=== PATIENT | female | born 1975 | race African-American/Black ===

== ENCOUNTER 2016-09-28 20:10 | Observation (INO) | payer OTHER ==
[~2016-09-28] VITALS: Ht 170.2 cm; Wt 72.3 kg
[2016-09-28] VITALS (9 sets, daily range): BP systolic 115–144; BP diastolic 73–86; PULSE 69–81; RESP 16–20; TEMP 98.7; O2SAT 98–100
--- NOTE | 2016-09-28 20:28 | PD ---
HPI Chief Complaint: Chest Pain Time Seen by Provider: 20:21 Travel History International Travel<30 days: No Contact w/Intl Traveler<30days: No Traveled to known affect area: No History of Present Illness HPI 40-year-old female here for evaluation of chest pain. Patient reports that the chest pain started 2 hours ago while at rest, is left-sided, radiates to her back. Pain is 10 out of 10, constant, worse with inspiration, exertion, slightly worse with movements. She denies any known history of cardiac disease. No history of DVT or PE, however there is family history of PE and her mom. No family history of cardiac disease. She is a nonsmoker. No fevers , chills, cough, or recent illness. No paresthesias or motor deficits. No recent travel or immobilization. She took three 81 mg aspirin prior to arrival in the emergency department. [facility] Social History Tobacco Use: No Allergies-Medications (Allergen,Severity, Reaction): Coded Allergies: No Known Allergies (Unverified , 09/28/16) Reported Meds & Prescriptions Reported Meds & Active Scripts Active Reported Vitamin E (Vitamin E Acetate) 400 Unit Capsule 400 Units PO DAILY Calcium (Oyster Shell) 500 Mg Tab 500 Mg PO DAILY Multiple Vitamin 1 Tab 1 Tab PO DAILY Review of Systems Except as stated in HPI: all other systems reviewed are Neg Physical Exam Narrative GENERAL: Well-developed, well-nourished, comfortable, no acute distress. SKIN: Focused skin assessment warm/dry. No rash. HEAD: Atraumatic. Normocephalic. EYES: Pupils equal and round. No scleral icterus. No injection or drainage. ENT: Mucous membranes pink and moist. NECK: Trachea midline. No JVD. CARDIOVASCULAR: Regular rate and rhythm. Distal pulses brisk and equal bilaterally. RESPIRATORY: No accessory muscle use. Clear to auscultation. Breath sounds equal bilaterally. GASTROINTESTINAL: Abdomen soft, non-tender, nondistended. MUSCULOSKELETAL: No obvious deformities. No clubbing. No cyanosis. No edema. NEUROLOGICAL: Awake and alert. No obvious cranial nerve deficits. Motor grossly within normal limits. Normal speech. PSYCHIATRIC: Appropriate mood and affect; insight and judgment normal. Data Data Last Documented VS Vital Signs Date Time Temp Pulse Resp B/P Pulse Ox O2 Delivery O2 Flow Rate FiO2 09/28/16 20:50 69 120/73 09/28/16 20:45 16 98 09/28/16 20:35 Room Air 09/28/16 20:28 98.7 Orders Electrocardiogram (09/28/16 20:24) Basic Metabolic Panel (Bmp) (09/28/16 20:24) Ckmb (Isoenzyme) Profile (09/28/16 20:24) Complete Blood Count With Diff (09/28/16 20:24) D-Dimer (09/28/16 20:24) Prothrombin Time / Inr (Pt) (09/28/16 20:24) Act Partial Throm Time (Ptt) (09/28/16 20:24) Troponin I (09/28/16 20:24) Chest, Single Ap (09/28/16 20:24) Ecg Monitoring (09/28/16 20:24) Iv Access Insert/Monitor (09/28/16 20:24) Oximetry (09/28/16 20:24) Sodium Chloride 0.9% Flush (Ns Flush) (09/28/16 20:30) Nitroglycerin Sl (Nitrostat Sl) (09/28/16 20:30) Beta Hydroxybutyrate (Acetone) (09/28/16 20:24) CKMB (09/28/16 20:08) CKMB% (09/28/16 20:08) Beta Hcg (Quant/Titer) (09/28/16 20:08) Admit Order (Ed Use Only) (09/28/16 21:38) Activity Bed Rest With Brp (09/28/16 21:38) Vital Signs (Adult) Q4H (09/28/16 21:38) Cardiac Rhythm .As Directed (09/28/16 21:38) Notify Dr: Other .PRN (09/28/16 21:38) Notify Dr. Parameters (09/28/16 21:38) Resp Oxygen Nasal Cannula (09/28/16 ) Ckmb (Isoenzyme) Profile (09/28/16 23:00) Ckmb (Isoenzyme) Profile (09/29/16 02:00) Troponin I (09/28/16 23:00) Troponin I (09/29/16 02:00) ^ Obtain (09/28/16 21:38) Sodium Chloride 0.9% Flush (Ns Flush) (09/28/16 21:45) Sodium Chloride 0.9% Flush (Ns Flush) (09/29/16 09:00) Car Supervisor / Telemetry MARY JO.Q8H (09/28/16 21:38) CKMB (09/28/16 23:15) CKMB% (09/28/16 23:15) Labs Laboratory Tests Test 09/28/16 20:08 White Blood Count 7.5 TH/MM3 Red Blood Count 4.15 MIL/MM3 Hemoglobin 12.7 GM/DL Hematocrit 36.5 % Mean Corpuscular Volume 88.2 FL Mean Corpuscular Hemoglobin 30.6 PG Mean Corpuscular Hemoglobin 34.7 % Concent Red Cell Distribution Width 12.7 % Platelet Count 190 TH/MM3 Mean Platelet Volume 8.7 FL Neutrophils (%) (Auto) 46.9 % Lymphocytes (%) (Auto) 41.5 % Monocytes (%) (Auto) 7.1 % Eosinophils (%) (Auto) 3.4 % Basophils (%) (Auto) 1.1 % Neutrophils # (Auto) 3.5 TH/MM3 Lymphocytes # (Auto) 3.1 TH/MM3 Monocytes # (Auto) 0.5 TH/MM3 Eosinophils # (Auto) 0.3 TH/MM3 Basophils # (Auto) 0.1 TH/MM3 CBC Comment DIFF FINAL Differential Comment Prothrombin Time 11.3 SEC Prothromb Time International 1.0 RATIO Ratio Activated Partial 23.6 SEC Thromboplast Time D-Dimer Quantitative (PE/DVT) LESS THAN 0.19 MG/L FEU Sodium Level 142 MEQ/L Potassium Level 3.8 MEQ/L Chloride Level 107 MEQ/L Carbon Dioxide Level 27.4 MEQ/L Anion Gap 8 MEQ/L Blood Urea Nitrogen 13 MG/DL Creatinine 1.00 MG/DL Estimat Glomerular Filtration 61 ML/MIN Rate Random Glucose 115 MG/DL Calcium Level 8.3 MG/DL Total Creatine Kinase 246 U/L Creatine Kinase MB 1.3 NG/ML Creatine Kinase MB % 0.5 % Troponin I LESS THAN 0.02 NG/ML Human Chorionic Gonadotropin, 2 MIU/ML Quant B-Hydroxybutyrate 0.12 MMOL/L MDM Medical Decision Making Medical Screen Exam Complete: Yes Emergency Medical Condition: Yes Interpretation(s) EKG: Sinus, rate 80, normal axis, normal intervals, no acute ischemic abnormality. Differential Diagnosis ACS, pneumothorax, pericarditis, PE, pneumonia, dissection, musculoskeletal pain Narrative Course Initial vital signs show heart rate of 81, blood pressure 144/86, pulse ox 100% on room air, oral temp of 98.7 from high. CBC is unremarkable. BMP is unremarkable. Cardiac enzymes are negative. D-dimer is negative at less than 0.19. Chest x-ray shows no acute disease. Beta hydroxybutyrate was ordered in error as I meant to order beta hCG. This test will be added. Patient does not believe she is . Patient was made aware of all findings. She was given 3 sublingual nitroglycerin with significant improvement in pain. She still feels some pain in the left side of her chest. She took 3 baby aspirin prior to arriving in the emergency department. Given ongoing symptoms she'll be admitted to the chest pain center for further cardiac evaluation. She is amenable to this plan. Case discussed with hospitalist Dr. Stubbs who will admit the patient to her service. Diagnosis Primary Impression: Chest pain Qualified Code: R07.9 - Chest pain, unspecified type Admitting Information Admitting Physician Requests: Observation Vini Ornelas MD Sep 28, 2016 20:28
[2016-09-28] MEDS ORDERED: SODIUM CHLORIDE 0.9% FLUSH 10 ML FLUSH IVF PRN (20:30)
[2016-09-28 20:36] LABS: AUTOMATED NEUTROPHIL # 3.5 TH/MM3 (1.8-7.7); BASOPHIL # 0.1 TH/MM3 (0-0.2); BASOPHIL % 1.1 % (0.0-2.0); EOSINOPHIL # 0.3 TH/MM3 (0-0.4); EOSINOPHIL % 3.4 % (0.0-4.0); HEMATOCRIT 36.5 % (35.0-46.0); HEMO FLAGS DIFF FINAL; LYMPH % 41.5 % (9.0-44.0); LYMPHOCYTE # 3.1 TH/MM3 (1.0-4.8); MEAN CELL VOLUME 88.2 FL (80.0-100.0); MEAN CORPUSCULAR HEMOGLOBIN 30.6 PG (27.0-34.0); MEAN CORPUSCULAR HGB CONC 34.7 % (32.0-36.0); MONO % 7.1 % (0.0-8.0); NEUT % 46.9 % (16.0-70.0); PLATELET COUNT 190 TH/MM3 (150-450); RED BLOOD COUNT 4.15 MIL/MM3 (4.00-5.30); RED CELL DISTRIBUTION WIDTH 12.7 % (11.6-17.2); WHITE BLOOD COUNT 7.5 TH/MM3 (4.0-11.0)
[2016-09-28] MEDS: NITROGLYCERIN 0.4 MG SL 25 TABS/BTL SL SCH ×3 (20:38→20:45)
[2016-09-28] MEDS ORDERED: VITA-136 PO (20:43)
[2016-09-28] MEDS ORDERED: CALC500T35 PO (20:43)
[2016-09-28] MEDS ORDERED: MULTTAB67 PO (20:43)
[2016-09-28 20:46] LABS: CHLORIDE 107 MEQ/L (98-107); SODIUM (NA) 142 MEQ/L (136-145)
[2016-09-28 20:51] LABS: ANION GAP 8 MEQ/L (5-15); BICARBONATE 27.4 MEQ/L (21.0-32.0); BLOOD UREA NITROGEN 13 MG/DL (7-18)
--- NOTE | 2016-09-28 20:51 | RADHPO ---
EXAM DATE/TIME: 09/28/2016 20:30 [facility] COMPARISON: No previous studies available for comparison. INDICATIONS : Chest pain. MEDICAL HISTORY : None. SURGICAL HISTORY : None. ENCOUNTER: Initial ACUITY: 1 day PAIN SCORE: 10/10 LOCATION: Bilateral upper chest FINDINGS: A single view of the chest demonstrates the lungs to be symmetrically aerated without evidence of mas s, infiltrate or effusion. The cardiomediastinal contours are unremarkable. Osseous structures are intact. CONCLUSION: No acute disease. You Henry MD on September 28, 2016 at 20:48 Board Certified Radiologist. This report was verified electronically.
[2016-09-28 20:54] LABS: GLOMERULAR FILTRATION RATE 61 ML/MIN (>89)
[2016-09-28 20:55] LABS: BETA-HYDROXYBUTYRATE 0.12 MMOL/L (0.00-0.39)
[2016-09-28 20:57] LABS: CREATINE KINASE 246 U/L (26-192)
[2016-09-28 21:01] LABS: APTT (PATIENT) 23.6 SEC (24.3-30.1); PROTHROMBIN TIME - PATIENT 11.3 SEC (9.8-11.6)
[2016-09-28 21:07] LABS: POTASSIUM 3.8 MEQ/L (3.5-5.1)
[2016-09-28 21:19] LABS: CKMB 1.3 NG/ML (0.5-3.6)
[2016-09-28 21:43] LABS: BETA HCG QUANT 2 MIU/ML (0-5)
[2016-09-28] MEDS ORDERED: SODIUM CHLORIDE 0.9% FLUSH 10 ML FLUSH IV FLUSH PRN (21:45)
[2016-09-28] MEDS ORDERED: MORPHINE SULFATE 4 MG/ML INJ IV PUSH ONE (22:30)
[2016-09-28] MEDS ORDERED: ACETAMINOPHEN 325 MG TAB PO ONE (22:45)
[2016-09-28 23:52] LABS: CREATINE KINASE 184 U/L (26-192)
[2016-09-29 00:26] VITALS: BP 121/77; PULSE 70; RESP 14; TEMP 98; O2SAT 98
[2016-09-29 03:12] LABS: CREATINE KINASE 177 U/L (26-192)
[2016-09-29 03:24] LABS: CKMB 0.9 NG/ML (0.5-3.6)
[2016-09-29 04:37] VITALS: BP 118/81; PULSE 75; RESP 16; TEMP 95.1; O2SAT 97
[2016-09-29 08:00] VITALS: BP 117/75; PULSE 65; PULSE 78; RESP 16; TEMP 96.7; O2SAT 98
[2016-09-29 08:58] VITALS: O2SAT 98
[2016-09-29] MEDS ORDERED: SODIUM CHLORIDE 0.9% FLUSH 10 ML FLUSH IV FLUSH SCH (09:00)
--- NOTE | 2016-09-29 11:24 | MH ---
cc: SUDHIR JUARES MD DATE OF ADMISSION: 09/28/2016 CHIEF COMPLAINT Chest pain. HISTORY OF PRESENT ILLNESS This is a 40-year-old female with past medical-surgical history significant for nothing, complaining of chest pain which is left-sided and this pain started 2 hours ago while she was at rest. It radiates to her back, pain is about 10 out of 10, constant, worse with inspiration and exertion, slightly worse with movement. She denies any history of cardiac disease. No history of DVT or pulmonary embolism in the past, however, she has a history of pulmonary embolism with her mother. No family history of cardiac disease. No hyperlipidemia. She is a nonsmoker. She said her chest pain is much better after the treatment. She denies any cough, fever or chills, any illness. She took 81 mg of aspirin before coming to the ER. Other than that nothing significant. PAST MEDICAL HISTORY/PAST SURGICAL HISTORY Nothing significant. SOCIAL HISTORY Denies smoking, drinking or taking any drugs. Lives at home. She is and she is a homemaker. FAMILY HISTORY Significant for mother had a history of pulmonary embolism. ALLERGIES NO KNOWN DRUG ALLERGIES. MEDICATIONS 1. Vitamin E 400 units p.o. daily. 2. Calcium 500 mg p.o. daily. 3. Multivitamin p.o. daily. REVIEW OF SYSTEMS All review of systems are negative except for mild chest pain. PHYSICAL EXAMINATION GENERAL: This is 40-year-old female sitting on the bed, not in acute distress. VITAL SIGNS: Temperature 96.7, heart rate 65, respirations 16, blood pressure 117/75, O2 saturation 98% on room air. HEENT: Normocephalic, atraumatic. EOMI. PERRL. Oral mucosa moist. NECK: Supple. No visible thyromegaly or neck mass. Trachea central. CVS: Regular rate and rhythm. RESPIRATIONS: Clear to auscultation bilaterally. ABDOMEN: Soft, nontender. Bowel sounds audible. EXTREMITIES: No cyanosis or clubbing. Full range of motion of all extremities. NEURO: Awake, alert, oriented x4. No focal deficits. SKIN: Warm and dry. PSYCHE: The patient is cooperative. Mood and affect is normal. LABORATORY DATA Include CBC is totally unremarkable. BMP totally unremarkable except for GFR 61 low, glucose 115 high, calcium 8.3 low, total creatinine kinase 246 which was high, then decreased down to 184, 177 which are normal. Troponin I less than 0.02 x3. HCG quantitative 2. PT 11.3, INR 1.0, APTT 23.6, D-dimer 0.19. Beta hydroxybutyrate 0.12. IMAGING STUDIES Chest x-ray done shows nothing acute. EKG Shows sinus rhythm rate of 69. EKG is normal. ASSESSMENT/PLAN 1. This is a 40-year-old female who came to the ER diagnosed with chest pain, rule out acute coronary syndrome, cardiac enzymes x3 within normal limits. Cardiology consulted. EKG does not show anything acute. Further recommendation per cardiology. 2. DVT prophylaxis. SCDs. 3. GI prophylaxis. Protonix 40 mg p.o. daily. We are going to manage the patient on a daily basis and make recommendation on a daily basis. Sudhir Juares MD EA/VITALIY /10:36 AM /11:16 AM
[2016-09-29 12:00] VITALS: BP 137/88; PULSE 70; RESP 18; TEMP 98.1; O2SAT 100
--- NOTE | 2016-09-29 12:19 | EKG ---
Date Performed: 09/28/2016 Time Performed: 20:12:32 PTAGE: 40 years EKG: Sinus rhythm . Normal ECG NO PREVIOUS TRACING DOCTOR: Luther Salazar Interpretating Date/Time 09/29/2016 12:18:07
--- NOTE | 2016-09-29 12:29 | EKG ---
Date Performed: 09/28/2016 Time Performed: 22:54:54 PTAGE: 40 years EKG: Sinus rhythm . Normal ECG PREVIOUS TRACING : 09/28/2016 20.12 DOCTOR: Luther Salazar Interpretating Date/Time 09/29/2016 12:27:46
--- NOTE | 2016-09-29 12:34 | EKG ---
Date Performed: 09/29/2016 Time Performed: 01:51:02 PTAGE: 40 years EKG: Sinus rhythm Rightward axis Borderline ECG PREVIOUS TRACING : 09/28/2016 20.12 DOCTOR: Luther Salazar Interpretating Date/Time 09/29/2016 12:33:46
[2016-09-29 16:00] VITALS: BP 126/84; PULSE 68; RESP 18; TEMP 97.3; O2SAT 100
[2016-09-29] MEDS ORDERED: NAPR500 PO (16:52)
--- NOTE | 2016-09-29 16:52 | PD.CONS ---
HPI Consult Requested By Reason for Consult Chest pain Primary Care Physician Elizabeth Collado MD History of Present Illness The patient has no cardiopulmonary history except for very mild leakage of the valve many years ago. She is active and had no cardiopulmonary symptoms up until noon yesterday. She developed the onset of sharp left parasternal, left precordial and left scapular discomfort. It was sharp, constant and got definitely worse when she would take a deep breath. It worsened over the course of the day but is much better today. It is still pleuritic. She notes no fevers, chills or sputum production. She has had no long car trips and has no history of blood clots. The discomfort was not positional, exertional or related to eating. Review of Systems Respiratory: DENIES: Snoring, Wheezing Cardiovascular: COMPLAINS OF: Chest pain Genitourinary: DENIES: Urinary incontinence Neurologic: DENIES: Tingling or numbness Musculoskeletal: DENIES: Muscle pain Psychiatric: DENIES: Anxiety, Depression Past Family Social History Allergies: Coded Allergies: No Known Allergies (Unverified , 09/28/16) Past Medical History The patient denies high blood pressure, diabetes, lipid problems or thyroid trouble. Past Surgical History Right inguinal hernia repair Reported Medications Reported Meds & Active Scripts Active Reported Vitamin E (Vitamin E Acetate) 400 Unit Capsule 400 Units PO DAILY Calcium (Oyster Shell) 500 Mg Tab 500 Mg PO DAILY Multiple Vitamin 1 Tab 1 Tab PO DAILY Active Ordered Medications Current Medications Medications (Trade) Dose Ordered Sig/Alex Route Start Time Stop Time Status Last Admin (NS Flush) 2 ml UNSCH PRN IVF 09/28/16 20:30 (NS Flush) 2 ml UNSCH PRN IV FLUSH 09/28/16 21:45 (NS Flush) 2 ml BID IV FLUSH 09/29/16 09:00 Family History Unremarkable for premature coronary disease or early clotting. Social History The patient is and does not smoke or drink. She has no allergies. Physical Exam Vital Signs Vital Signs Date Time Temp Pulse Resp B/P Pulse Ox O2 Delivery O2 Flow Rate FiO2 09/29/16 16:00 97.3 68 18 126/84 100 09/29/16 12:00 98.1 70 18 137/88 100 09/29/16 08:58 98 21 09/29/16 08:00 78 09/29/16 08:00 96.7 65 16 117/75 98 09/29/16 04:37 95.1 75 16 118/81 97 09/29/16 00:26 98.0 70 14 121/77 98 09/28/16 23:50 71 09/28/16 21:51 98 21 09/28/16 21:48 78 16 122/77 99 Room Air 09/28/16 21:45 70 17 115/76 99 Room Air 09/28/16 20:50 69 120/73 09/28/16 20:45 75 16 123/75 98 09/28/16 20:40 78 127/81 09/28/16 20:35 77 140/83 09/28/16 20:35 77 16 140/73 99 Room Air 09/28/16 20:34 99 Room Air 09/28/16 20:28 98.7 81 20 144/86 100 Physical Exam CONSTITUTIONAL: A well-developed, well-nourished patient in no apparent distress. EYES: Conjunctiva normal. Sclera nonicteric. Eyelids normal. No xanthelasma. HEENT: Oral mucosa normal without pallor or cyanosis. NECK: JVD less than or equal to 5 cm of water. RESPIRATORY: Breathing is unlabored without accessory muscle use. Normal breath sounds. No wheezes, rales or rubs present. CARDIOVASCULAR: Normal point of maximal impulse. No cardiac thrill present. Regular rate and rhythm. No murmurs, gallops, rubs or clicks present. PULSES: Carotid arteries: Normal pulses bilaterally without bruits. Palmar arteries: Radial pulses 2+ bilaterally Abdominal aorta: Aortic pulses normal without bruits or enlargement. Femoral arteries: 2+ bilaterally. No bruits present. Pedal pulses: 2+ bilaterally PERIPHERAL CIRCULATION: No cyanosis, clubbing, edema or varicosities present. GASTROINTESTINAL: Normal bowel sounds. Nontender without rigidity or guarding. No masses present. No hepatomegaly. Liver is nontender to palpation and spleen is nonpalpable. Digital rectal exam-not indicated for cardiovascular exam. MUSCULOSKELETAL: No kyphosis or scoliosis present. The patient is not ambulated. Able to undergo rehabilitation. SKIN: Skin turgor is normal. No rashes. NEUROLOGIC: Grossly oriented to person, place and time. Normal mood and appropriate affect. Laboratory Laboratory Tests Test 09/28/16 09/28/16 09/29/16 20:08 23:15 02:05 White Blood Count 7.5 Red Blood Count 4.15 Hemoglobin 12.7 Hematocrit 36.5 Mean Corpuscular Volume 88.2 Mean Corpuscular Hemoglobin 30.6 Mean Corpuscular Hemoglobin 34.7 Concent Red Cell Distribution Width 12.7 Platelet Count 190 Mean Platelet Volume 8.7 Neutrophils (%) (Auto) 46.9 Lymphocytes (%) (Auto) 41.5 Monocytes (%) (Auto) 7.1 Eosinophils (%) (Auto) 3.4 Basophils (%) (Auto) 1.1 Neutrophils # (Auto) 3.5 Lymphocytes # (Auto) 3.1 Monocytes # (Auto) 0.5 Eosinophils # (Auto) 0.3 Basophils # (Auto) 0.1 CBC Comment DIFF FINAL Differential Comment Prothrombin Time 11.3 Prothromb Time International 1.0 Ratio Activated Partial 23.6 Thromboplast Time D-Dimer Quantitative (PE/DVT) LESS THAN 0.19 Sodium Level 142 Potassium Level 3.8 Chloride Level 107 Carbon Dioxide Level 27.4 Anion Gap 8 Blood Urea Nitrogen 13 Creatinine 1.00 Estimat Glomerular Filtration 61 Rate Random Glucose 115 Calcium Level 8.3 Total Creatine Kinase 246 184 177 Creatine Kinase MB 1.3 1.0 0.9 Creatine Kinase MB % 0.5 Troponin I LESS THAN 0.02 LESS THAN 0.02 LESS THAN 0.02 Human Chorionic Gonadotropin, 2 Quant B-Hydroxybutyrate 0.12 Result Diagram: 09/28/16200709/28/162007 Imaging Multiple EKGs show sinus rhythm and normal. Last 48 hours Impressions Chest X-Ray 09/28/162023 Signed Impressions: Service Date/Time: Wednesday, September 28, 2016 20:30 - CONCLUSION: No acute disease. You Henry MD Assessment and Plan Assessment and Plan Problems: Pleuritic chest pain Assessment/recommendations: The patient has had over 24 hours of left-sided pleuritic chest pain which is improving. Chest x-ray, EKGs, serial troponins and d-dimer are normal. She has no predisposing factor for DVT or pulmonary emboli. The discomfort clearly is noncardiac and she has a normal exam. The etiology appears most consistent with pleurisy. At this point in time I do not think we need to do further cardiac testing or imaging. Additionally, she has no predisposing factor for pulmonary embolus and has a normal d-dimer. I have spoken with her attending and I would recommend a course of nonsteroidal anti-inflammatory drugs for pleurisy. She will take it easy this week. I have given her my card and she has the option of following up with myself. All questions were answered to her and her . Ari Villarreal MD Sep 29, 2016 16:52
== END 2016-09-29 17:44 | disposition home or self-care (01) ==
LOC: PHED 20:10 → PHEDA 21:40 → PH3B 23:23
PROVIDERS: ADMIT Family Medicine; ATTEND Family Medicine
DX: R07.81 Pleurodynia (principal)
CPT/HCPCS: 71010; 80048; 82010; 82550; 82552; 84484; 84702; 85025; 85379; 85610; 85730; 93005; 99285; G0378